=== PATIENT | female | born 1960 | race Caucasian/White ===

== ENCOUNTER 2018-07-12 11:09 | Emergency (ER) | payer MEDICAID ==
[~2018-07-12] VITALS: Ht 152.4 cm; Wt 48.0 kg
[2018-07-12 11:14] VITALS: Ht 152.4 cm; Wt 48.0 kg
[2018-07-12] MEDS ORDERED: ASPI325T30 PO (11:49)
[2018-07-12] MEDS ORDERED: FUROSEMIDE 40 MG INJ IV ONE (12:00)
[2018-07-12] MEDS ORDERED: FURO-109 PO (12:53)
--- NOTE | 2018-07-12 12:55 | ERD ---
ER Documentation Chief Complaint Chief Complaint dizziness on and off x 1 month HPI Patient is a 57-year-old female with diabetes who presents with dizziness. She has had dizziness for 2 months. She had bilateral leg swelling which started 2 weeks ago. The symptoms were worse yesterday so she came to the emergency department. She has had no treatment as of yet. She said that she has had some bleeding gums when brushing her teeth. Upon review of old medical records this is the patient's first visit to the emergency department. She does not currently have a primary doctor. ROS All systems reviewed and are negative except as per history of present illness. Medications Home Meds Active Scripts Furosemide* (Lasix*) 40 Mg Tablet, 40 MG PO DAILY, #20 TAB Prov:SUSAN MONTELONGO MD 07/12/18 Reported Medications Aspirin* (Aspirin*) 325 Mg Tablet, 325 MG PO DAILY, TAB 07/12/18 Allergies Allergies: Coded Allergies: No Known Allergy (Unverified , 07/12/18) PMhx/Soc History of Surgery: Yes (cataract surgery) Anesthesia Reaction: No Hx Neurological Disorder: No Hx Respiratory Disorders: No Hx Cardiac Disorders: Yes (DM, HTN) Hx Psychiatric Problems: No Hx Miscellaneous Medical Probl: No Hx Alcohol Use: No Hx Substance Use: No Hx Tobacco Use: No Smoking Status: Never smoker FmHx Family History: No diabetes Physical Exam Vitals Vital Signs Date Temp Pulse Resp B/P (MAP) Pulse Ox O2 O2 Flow FiO2 Time Delivery Rate 07/12/18 98.1 78 16 156/86 99 Room Air 13:34 (109) 07/12/18 97.4 102 16 206/101 98 11:14 (136) Physical Exam Const: No acute distress Head: Atraumatic Eyes: Normal Conjunctiva ENT: Normal External Ears, Nose and Mouth. Neck: Full range of motion. No meningismus. Resp: Clear to auscultation bilaterally Cardio: Regular rate and rhythm, no murmurs Abd: Soft, non tender, non distended. Normal bowel sounds Skin: No petechiae or rashes Back: No midline or flank tenderness Ext: 2+ pitting edema bilaterally Neur: Awake and alert Psych: Normal Mood and Affect Result Diagram: 07/12/18 1203 07/12/18 1203 Results 24 hrs Laboratory Tests Test 07/12/18 12:03 White Blood Count 6.4 10^3/ul Red Blood Count 3.60 10^6/ul Hemoglobin 10.9 g/dl Hematocrit 31.7 % Mean Corpuscular Volume 88.1 fl Mean Corpuscular Hemoglobin 30.3 pg Mean Corpuscular Hemoglobin Concent 34.4 g/dl Red Cell Distribution Width 12.9 % Platelet Count 335 10^3/UL Mean Platelet Volume 9.8 fl Immature Granulocytes % 0.800 % Neutrophils % 62.2 % Lymphocytes % 29.1 % Monocytes % 5.7 % Eosinophils % 1.4 % Basophils % 0.8 % Nucleated Red Blood Cells % 0.0 /100WBC Immature Granulocytes # 0.050 10^3/ul Neutrophils # 4.0 10^3/ul Lymphocytes # 1.9 10^3/ul Monocytes # 0.4 10^3/ul Eosinophils # 0.1 10^3/ul Basophils # 0.1 10^3/ul Nucleated Red Blood Cells # 0.0 10^3/ul Prothrombin Time 11.8 Sec Prothrombin Time Ratio 0.9 INR International Normalized Ratio 0.86 Activated Partial Thromboplast Time 26.0 Sec Urine Color STRAW Urine Clarity CLEAR Urine pH 7.0 Urine Specific [place] 1.014 Urine Ketones NEGATIVE mg/dL Urine Nitrite NEGATIVE mg/dL Urine Bilirubin NEGATIVE mg/dL Urine Urobilinogen NEGATIVE mg/dL Urine Leukocyte Esterase NEGATIVE June/ul Urine Microscopic RBC 0 /HPF Urine Microscopic WBC 1 /HPF Urine Hemoglobin 1+ mg/dL Urine Glucose 3+ mg/dL Urine Total Protein 3+ mg/dl Sodium Level 131 mmol/L Potassium Level 4.3 mmol/L Chloride Level 98 mmol/L Carbon Dioxide Level 28 mmol/L Anion Gap 5 Blood Urea Nitrogen 32 mg/dl Creatinine 1.53 mg/dl Est Glomerular Filtrat Rate mL/min 35 mL/min Glucose Level 376 mg/dl Calcium Level 8.7 mg/dl Total Bilirubin 0.0 mg/dl Direct Bilirubin 0.00 mg/dl Indirect Bilirubin 0.0 mg/dl Aspartate Amino Transf (AST/SGOT) 28 IU/L Alanine Aminotransferase (ALT/SGPT) 21 IU/L Alkaline Phosphatase 114 IU/L Troponin I < 0.012 ng/ml Total Protein 5.6 g/dl Albumin 2.6 g/dl Globulin 3.00 g/dl Albumin/Globulin Ratio 0.86 Lipase 61 U/L Current Medications Medications Dose Sig/Gretta Start Time Status Last (Trade) Ordered Route PRN Stop Time Admin Dose Reason Admin Furosemide 40 mg ONCE ONCE 07/12/18 DC 07/12/18 (Lasix) IV 12:00 12:26 07/12/18 12:01 Procedures/[facility] EKG read by me: Rate/Rhythm: Regular rate and rhythm at a normal rate Intervals: Normal Impression: No evidence of ischemia or arrhythmia Chest x-ray negative per radiology. Patient is a 57-year-old female presents with dizziness and bilateral leg swelling. Chest x-ray shows no pulmonary edema. She has no chest pain. Troponin is negative. Laboratory studies are otherwise normal other than a mild anemia. The patient will be given Lasix in the emergency department and then a prescription as well. She will be given the information for the local clinics as I do believe she needs close follow-up with a primary doctor. I do not believe she requires admission to the hospital at this time. Departure Diagnosis: Primary Impression: Edema Edema type: unspecified Qualified Codes: R60.9 - Edema, unspecified Additional Impression: Dizziness Condition: Fair Patient Instructions: Peripheral Edema, Bilateral [facility] Usted se christianson hecho un examen mdico de control que le indica que no est en sae condicin que requiera tratamiento urgente en el Departamento de Emergencia. Un estudio ms profundo y el tratamiento de rodgers condicin pueden esperar sin ningn riesgo hasta que usted sea atendida/o en el consultorio de rodgers mdico o sae clnica. Es responsabilidad suya arreglar sae anabel para el seguimiento del herbie. MANEJO DE CONDICIONES NO URGENTES EN EL FUTURO 1) Si usted tiene un mdico de atencin primaria: Usted debera llamar a rodgers mdico de atencin primaria antes de venir al departamento de emergencia. Despus de las horas de consultorio, rodgers doctor o rodgers asociado/a est disponible por telfono. El mdico o enfermero de ally en el servicio telefnico puede asesorarle por rosy medio para atender el problema, o herbie contrario se puede programar sae anabel. 2) Si usted no tiene un mdico de atencin primaria: Llame al mdico o clnica de referencia que aparece abajo donna las horas de consultorio para hacer sae anabel para que le vean. CLINICAS: [facility] [phone] [facility] [phone] [facility] [phone] [place] [phone] [place] [phone] [facility] [phone] [address] Additional Instructions: Llame al doctor MAANA y leila sae ANABEL PARA DENTRO DE 1-2 DIA.Dgale a la secretaria que nosotros le instruimos hacer esta anabel.Avise o llame si rodgers condicin se empeora antes de la anabel. Regresa aqui si peor o no mejor. SUASN MONTELONGO MD Jul 12, 2018 12:55
[2018-07-12 13:34] VITALS: BP 156/86; PULSE 78; RESP 16
== END 2018-07-12 13:35 | disposition home or self-care (01) ==
LOC: E/R 11:09
DX: R60.9 Edema, unspecified (principal); E11.9 Type 2 diabetes mellitus without complications; I10 Essential (primary) hypertension; R07.9 Chest pain, unspecified; Z79.82 Long term (current) use of aspirin
CPT/HCPCS: 36415; 70450; 71045; 80053; 81001; 83690; 84484; 85025; 85610; 85730; 93005; 96374; J1940; Z7502